=== PATIENT | female | born 1995 | race Caucasian/White ===

== ENCOUNTER 2018-03-13 00:51 | Emergency (ER) | payer OTHER ==
[2018-03-13] MEDS ORDERED: ONDANSETRON 4 MG/2 ML VIAL ONE (00:53)
[2018-03-13] MEDS ORDERED: NS 1,000 ML IV ONE (00:54)
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
--- NOTE | 2018-03-13 00:59 | CPEKG ---
Heart Rate: 78 RR Interval: 769 P-R Interval: 156 QRSD Interval: 118 QT Interval: 428 QTC Interval: 488 P [place]: 14 QRS [place]: 52 T Wave [place]: 31 EKG Severity - ABNORMAL ECG - EKG Impression: SINUS RHYTHM EKG Impression: NONSPECIFIC INTRAVENTRICULAR CONDUCTION DELAY Electronically Signed By: Morales Solorio 13-Mar-2018 06:55:31
[2018-03-13] MEDS ORDERED: LORazepam 2 MG/ML INJ ONE ×2 (01:03→04:49)
[2018-03-13 01:20] LABS: PLATELET COUNT 202 10^3/uL (150-400)
--- NOTE | 2018-03-13 02:02 | CPEKG ---
Heart Rate: 60 RR Interval: 1000 P-R Interval: 156 QRSD Interval: 118 QT Interval: 440 QTC Interval: 440 P [place]: 38 QRS [place]: 61 T Wave [place]: 43 EKG Severity - ABNORMAL ECG - EKG Impression: SINUS RHYTHM EKG Impression: NONSPECIFIC INTRAVENTRICULAR CONDUCTION DELAY Electronically Signed By: Morales Solorio 13-Mar-2018 06:55:31
[2018-03-13] MEDS ORDERED: LORazepam 2 MG/ML INJ IM ONE (04:48)
[2018-03-13] MEDS ORDERED: LORazepam 1 MG TAB ONE (06:59)
[2018-03-13] MEDS ORDERED: LORazepam 1 MG TAB PO ONE (07:01)
[2018-03-13 12:03] VITALS: BP 98/57
== END 2018-03-13 12:03 | disposition home or self-care (01) ==
DX: T50.901A Poisoning by unspecified drugs, medicaments and biological substances, accidental (unintentional), initial encounter (principal); F10.920 Alcohol use, unspecified with intoxication, uncomplicated
CPT/HCPCS: 80305; 84484-PO; G0480; J2060; J2405